=== PATIENT | male | born 1980 | race American Indian/Alaskan Native ===

== ENCOUNTER 2021-01-28 11:31 | Emergency (ER) | payer SELFPAY ==
--- NOTE | 2021-01-28 13:10 | Emergency Department Report ---
ED General Adult HPI - General Chief complaint: Medical Clearance Stated complaint: MEDICATION REFILL Time Seen by Provider: 01/28/21 12:41 Source: patient Mode of arrival: Ambulatory Limitations: No Limitations - History of Present Illness Initial comments: 40-year-old male with a past medical history of bipolar disorder presents to the ER today requesting refills on his medication. Patient states that he has been out of his Depakote, Vistaril, and hydroxyzine since September 05. Patient states that prior to that he was incarcerated and he was receiving his medication was in shelter but when he got out he has been having difficulty getting an appointment with a primary care doctor. He states that every time he tries to make an appointment to go see a doctor "they keep giving me the run around". Patient states that since being off his medicines he has been feeling" a little off" but he denies any SI, HI, or hallucinations. He denies any other symptoms. MD Complaint: Medication refill -: month(s) - Related Data Previous Rx's Medication Instructions Recorded Last Taken Type Divalproex ER [DepaKOTE ER] 250 mg PO BID #60 tablet 01/28/21 Unknown Rx Hydroxyzine HCl [hydrOXYzine] 50 mg PO QHS #30 tablet 01/28/21 Unknown Rx Venlafaxine [Effexor] 75 mg PO DAILY #30 tablet 01/28/21 Unknown Rx Allergies Allergy/AdvReac Type Severity Reaction Status Date / Time No Known Allergies Allergy Unverified 01/28/21 12:44 ED Review of Systems ROS: Stated complaint: MEDICATION REFILL Other details as noted in HPI Comment: All other systems reviewed and negative Constitutional: denies: chills, fever Eyes: denies: eye pain, eye discharge, vision change ENT: denies: ear pain, throat pain, dental pain, hearing loss, epistaxis, congestion Respiratory: denies: cough, shortness of breath, SOB with exertion, SOB at rest, wheezing Cardiovascular: denies: chest pain, palpitations, dyspnea on exertion, edema, syncope, paroxysmal nocturnal dyspnea Gastrointestinal: denies: abdominal pain, nausea, diarrhea, constipation, hematemesis, hematochezia Genitourinary: denies: urgency, dysuria, frequency, hematuria, discharge, testicular pain, testicular mass Musculoskeletal: denies: back pain, joint swelling, arthralgia Skin: denies: rash, lesions, change in color, change in hair/nails, pruritus Neurological: denies: headache, weakness, numbness, paresthesias, confusion, abnormal gait, vertigo Psychiatric: denies: anxiety, depression, auditory hallucinations, visual weston lucinations, homicidal thoughts, suicidal thoughts Hematological/Lymphatic: denies: easy bleeding, easy bruising, swollen glands ED Past Medical Hx - Past Medical History Previous Medical History?: No - Surgical History Additional Surgical History: right leg - Medications Home Medications: Home Medications Medication Instructions Recorded Confirmed Last Taken Type Divalproex ER [DepaKOTE ER] 250 mg PO BID #60 tablet 01/28/21 Unknown Rx Hydroxyzine HCl [hydrOXYzine] 50 mg PO QHS #30 tablet 01/28/21 Unknown Rx Venlafaxine [Effexor] 75 mg PO DAILY #30 tablet 01/28/21 Unknown Rx ED Physical Exam - General Limitations: No Limitations General appearance: alert, in no apparent distress - Head Head exam: Present: atraumatic, normocephalic, normal inspection - Eye Eye exam: Present: normal appearance, PERRL, EOMI Pupils: Present: normal accommodation - Neck Neck exam: Present: normal inspection, full ROM - Respiratory Respiratory exam: Present: normal lung sounds bilaterally. Absent: respiratory distress - Cardiovascular Cardiovascular Exam: Present: regular rate, normal rhythm, normal heart sounds - Neurological Exam Neurological exam: Present: alert, oriented X3, CN II-XII intact, normal gait - Psychiatric Psychiatric exam: Present: normal affect, normal mood. Absent: homicidal ideation, suicidal ideation - Skin Skin exam: Present: intact ED Course Vital Signs 01/28/21 12:39 Temperature 98.1 F Pulse Rate 67 Respiratory 20 Rate Blood Pressure 139/80 O2 Sat by Pulse 97 Oximetry Critical care attestation.: If time is entered above; I have spent that time in minutes in the direct care of this critically ill patient, excluding procedure time. ED Disposition Clinical Impression: Medication refill, Hx of bipolar disorder Disposition: DC-01 TO HOME OR SELFCARE Is pt being admited?: No Does the pt Need Aspirin: No Condition: Stable Instructions: Medicine Refill at the Emergency Department Additional Instructions: Recommend I start taking your medication as prescribed. Follow-up with the primary care doctor/clinic listed on your discharge instructions for continued care and refills on your meds. Return to the ER if your symptoms changes or worsens in any way. Prescriptions: Hydroxyzine HCl [hydrOXYzine] 50 mg PO QHS #30 tablet Divalproex ER [DepaKOTE ER] 250 mg PO BID #60 tablet Venlafaxine [Effexor] 75 mg PO DAILY #30 tablet Referrals: SRIKANTH RICHARDSON MD [Staff Physician] - 3-5 Days [facility] [Provider Group] - 3-5 Days Time of Disposition: 13:10
== END 2021-01-28 12:45 | disposition home or self-care (01) ==
LOC: ED 11:31
CPT/HCPCS: 99282

== ENCOUNTER 2021-09-21 14:59 | Emergency (ER) | payer SELFPAY ==
[2021-09-21 15:34] VITALS: BP 127/85
== END 2021-09-21 18:13 | disposition left against medical advice (07) ==
LOC: ED 14:59
DX: R06.00 Dyspnea, unspecified (principal); Z53.21 Procedure and treatment not carried out due to patient leaving prior to being seen by health care provider